=== PATIENT | male | born 1950 | race Hispanic/Latino ===

== ENCOUNTER 2020-03-25 08:40 | Emergency (ER) | payer MEDICARE ==
[2020-03-25 08:42] VITALS: BP 137/82
[2020-03-25] MEDS ORDERED: IBUPROFEN 800 MG TAB PO ONE (10:43)
--- NOTE | 2020-03-25 10:44 | Emergency Department Report ---
ED General Adult HPI - General Chief complaint: Extremity Injury, Lower Stated complaint: LEFT LEG PAIN Time Seen by Provider: 03/25/20 10:37 Source: patient Mode of arrival: Ambulatory Limitations: No Limitations - History of Present Illness Initial comments: 69-year-old -[place] male patient presents with complaints of left ankle pain after a twist injury yesterday. Patient rates his current pain is 8/10 in severity and states it worsens with ambulation and movement of the ankle. He denies any bruising, numbness/tingling, or weakness. Patient states he twisted his ankle by stepping into a hole yesterday. He denies any other injuries -: Sudden Consistency: constant Improves with: immobilization - Related Data Previous Rx's Medication Instructions Recorded Last Taken Type Naproxen 500 mg PO BID PRN 7 Days #14 tablet 03/25/20 Unknown Rx Allergies Allergy/AdvReac Type Severity Reaction Status Date / Time No Known Allergies Allergy Unverified 03/25/20 08:43 ED Review of Systems ROS: Stated complaint: LEFT LEG PAIN Other details as noted in HPI Constitutional: denies: fever, malaise Respiratory: denies: cough, shortness of breath Musculoskeletal: arthralgia. denies: joint swelling Neurological: denies: numbness, paresthesias, abnormal gait ED Past Medical Hx - Past Medical History Previous Medical History?: No - Surgical History Past Surgical History?: No - Social History Smoking Status: Never Smoker Substance Use Type: None - Medications Home Medications: Home Medications Medication Instructions Recorded Confirmed Last Taken Type Naproxen 500 mg PO BID PRN 7 Days #14 tablet 03/25/20 Unknown Rx ED Physical Exam - General Limitations: No Limitations General appearance: alert, in no apparent distress - Head Head exam: Present: atraumatic, normocephalic - Eye Eye exam: Present: normal appearance. Absent: scleral icterus - ENT ENT exam: Present: normal exam - Respiratory Respiratory exam: Present: normal lung sounds bilaterally. Absent: respiratory distress - Cardiovascular Cardiovascular Exam: Present: regular rate, normal rhythm - Extremities Exam Extremities exam: Present: other (Tenderness to palpation noted over anterior portion of left ankle near the talus without bruising. There is mild swelling noted to the left lateral ankle. No lateral or medial malleolus tenderness noted. Patient has full range of motion and normal pedal pulses of the left ankle). Absent: pedal edema, joint swelling - Back Exam Back exam: Present: full ROM - Neurological Exam Neurological exam: Present: alert, oriented X3, normal gait - Psychiatric Psychiatric exam: Present: normal affect, normal mood - Skin Skin exam: Present: warm, dry, intact, normal color. Absent: rash ED Course Vital Signs 03/25/20 08:42 Temperature 98 F Pulse Rate 97 H Respiratory 18 Rate Blood Pressure 137/82 [Right] O2 Sat by Pulse 98 Oximetry ED Medical Decision Making - Radiology Data Radiology results: report reviewed LEFT ANKLE 3 VIEWS INDICATION: anterior pain after twist injury. COMPARISON: None. IMPRESSION: There is moderate lateral soft tissue swelling. Normal bone mineralization. No acute osseous findings or joint pathology. Small ossicle distal to the medial malleolus is noted. - Medical Decision Making 69-year-old -[place] male patient presents with complaints of left ankle pain after a twist injury yesterday. Patient rates his current pain is 8/10 in severity and states it worsens with ambulation and movement of the ankle. He denies any bruising, numbness/tingling, or weakness. Patient states he twisted his ankle by stepping into a hole yesterday. He denies any other injuries. X- ray is negative for fracture, however shows soft tissue swelling at the lateral portion of the ankle. Patient placed in Bob wrap and rice method was discussed in detail with patient. Patient to follow-up with PCP. He is well-appearing and stable for discharge home. Strict return precautions were discussed in detail with patient who verbalized understanding. Critical care attestation.: If time is entered above; I have spent that time in minutes in the direct care of this critically ill patient, excluding procedure time. ED Disposition Clinical Impression: Left ankle sprain Qualifiers: Encounter type: initial encounter Involved ligament of ankle: other ligament Qualified Code(s): S93.492A - Sprain of other ligament of left ankle, initial encounter Disposition: TO HOME OR SELFCARE Is pt being admited?: No Condition: Stable Instructions: Ankle Sprain (ED) Prescriptions: Naproxen 500 mg PO BID PRN 7 Days #14 tablet PRN Reason: pain Referrals: PRIMARY CARE, [Primary Care Provider] - 3-5 Days
--- NOTE | 2020-03-25 11:16 | XRay Report ---
LEFT ANKLE 3 VIEWS INDICATION: anterior pain after twist injury. COMPARISON: None. IMPRESSION: There is moderate lateral soft tissue swelling. Normal bone mineralization. No acute os seous findings or joint pathology. Small ossicle distal to the medial malleolus is noted. Signer Name: Prashant Wick Jr, MD Signed: 03/25/2020 11:12 AM Workstation Name: [id number]
== END 2020-03-25 12:19 | disposition home or self-care (01) ==
LOC: ED 08:40
DX: S93.492A Sprain of other ligament of left ankle, initial encounter (principal); Z79.899 Other long term (current) drug therapy; X58.XXXA Exposure to other specified factors, initial encounter; Y93.89 Activity, other specified; Y92.89 Other specified places as the place of occurrence of the external cause; Y99.8 Other external cause status